=== PATIENT | male | born 1945 | race Caucasian/White ===

== ENCOUNTER 2018-05-06 06:02 | Day surgery (SDC) | payer MEDICARE, SELFPAY ==
--- NOTE | 2018-05-04 08:33 | W.PIPPEYE ---
History of Present Illness Chief Complaint: Progressive decreased vision, left eye Narrative: The patient is a 72-year-old male who has previously undergone cataract surgery in the right eye in 2013. He maintains uncorrected visual acuity of 20/25 in the right eye. He has developed a moderate nuclear cataract in the left eye with visual acuity of 20/100 uncorrected. Best corrected vision in the left eye is 20/50 with significant glare disability. The option of cataract surgery was offered to the patient and he wished to proceed. NOTE: The Chief Complaint, HPI, Past Medical History, Past Surgical History, Family History, Social History, Medications, and complete Ophthalmic Exam with detailed Assessment and Plan have already been documented in the patient's outpatient ophthalmic record and are not covered again in detail here. [facility] Medical History Nuclear sclerotic cataract of left eye (Acute) Social History Smoking/Tobacco Use Status: Current every day Surgical History Status post cataract extraction and insertion of intraocular lens of right eye (Chronic 09/23/13) Meds Home Medications Medication Instructions Recorded Confirmed Type acetaminophen [Arthritis Pain 2 tab PO BID PRN 09/18/13 05/02/18 History Relief (acetam)] calcium carbonate [Calcium] 600 mg PO BID 09/18/13 05/02/18 History digoxin [Lanoxin] 0.25 mg PO DAILY 09/18/13 05/02/18 History fenofibrate 160 mg PO DAILY 09/18/13 05/02/18 History furosemide 60 mg PO DAILY 09/18/13 05/02/18 History glimepiride 4 mg PO DAILY 09/18/13 05/02/18 History glucosamine cross 2KCl-chondroit 1 tab PO BID 09/18/13 05/02/18 History [Glucosamine & Chondroitin Cap] insulin glargine [Lantus Solostar] 75 units SQ HS 09/18/13 05/02/18 History lisinopril 10 mg PO DAILY 09/18/13 05/02/18 History magnesium oxide 400 mg PO DAILY 09/18/13 05/02/18 History metformin [Glucophage] 1,000 mg PO BID 09/18/13 05/02/18 History metoprolol tartrate 200 mg PO DAILY 09/18/13 05/02/18 History potassium chloride [Klor-Con M20] 20 meq PO DAILY 09/18/13 05/02/18 History simvastatin 40 mg PO HS 09/18/13 05/02/18 History warfarin [Coumadin] 5 mg PO DIRECTED 09/18/13 05/02/18 History alfuzosin 1 tab PO DAILY 05/02/18 05/02/18 History Allergies Allergy/AdvReac Type Severity Reaction Status Date / Time No Known Allergies Allergy Unverified 09/23/13 09:41 Exam OCULAR EXAM:: Visual acuity at distance: Uncorrected 20/25 right eye, 20/100 left eye. Best corrected visual acuity is 20/50 left eye. Pupils: Pupils equal, round, and reactive without afferent pupillary defect IOP: 12 OD 14 OS Extraocular Motility: Normal Pertinent Slit Lamp Findings: Significant for pupils dilating to 4.5 mm OU. Well-positioned PCIOL OD with 2+ posterior capsule haze. 2+ nuclear cataract OS. Dilated Funduscopic Examination: Disc cupping is 0.3 OU with good color. In the right macula there is some epiretinal membrane with preretinal fibrosis. The left macula is normal. Peripheral retina and vitreous in both eyes is normal. BRIGHTNESS ACUITY TESTING (BAT):: Off left eye 20/100 Low: 20/100 Medium: 20/200 High: 20/400 Assessment and Plan (1) Nuclear sclerotic cataract of left eye: Current visit: No Status: Acute Assessment: Visually significant cataract, left eye. Plan: Cataract extraction with intraocular lens implantation, left eye Note: NOTE:: The details of the planned surgery, including the risks, indications,limitations,expectations,outcome and possible complications were explained to the patient. The patient understands the complications including, but not limited to: infection, hemorrhage, posterior dislocation of the lens or nuclear fragments which may require the intervention of a vitreoretinal surgeon, possible loss of the eye, or from anesthetic complications. The patient has been made aware of the option of not having surgery, that vision following surgery may not be equal to that prior to surgery, and that the planned surgery may not achieve the intended results. Following this discussion, which the patient appeared to understand, the patient wishes to proceed with cataract surgery with lens implantation of the affected eye to improve and maximize vision.
--- NOTE | 2018-05-04 08:55 | POEE_ITS ---
History of Present Illness Chief Complaint: Progressive decreased vision, left eye Narrative: The patient is a 72-year-old male who has previously undergone cataract surgery in the right eye in 2013. He maintains uncorrected visual acuity of 20/25 in the right eye. He has developed a moderate nuclear cataract in the left eye with visual acuity of 20/100 uncorrected. Best corrected vision in the left eye is 20/50 with significant glare disability. The option of cataract surgery was offered to the patient and he wished to proceed. NOTE: The Chief Complaint, HPI, Past Medical History, Past Surgical History, Family History, Social History, Medications, and complete Ophthalmic Exam with detailed Assessment and Plan have already been documented in the patient's outpatient ophthalmic record and are not covered again in detail here. [facility] Medical History Nuclear sclerotic cataract of left eye (Acute) Social History Smoking/Tobacco Use Status: Current every day Surgical History Status post cataract extraction and insertion of intraocular lens of right eye ( Chronic 09/23/13) Meds Home Medications Medication Instructions Recorded Confirmed Type acetaminophen [Arthritis Pain 2 tab PO BID PRN 09/18/13 05/02/18 History Relief (acetam)] calcium carbonate [Calcium] 600 mg PO BID 09/18/13 05/02/18 History digoxin [Lanoxin] 0.25 mg PO DAILY 09/18/13 05/02/18 History fenofibrate 160 mg PO DAILY 09/18/13 05/02/18 History furosemide 60 mg PO DAILY 09/18/13 05/02/18 History glimepiride 4 mg PO DAILY 09/18/13 05/02/18 History glucosamine cross 2KCl-chondroit 1 tab PO BID 09/18/13 05/02/18 History [Glucosamine & Chondroitin Cap] insulin glargine [Lantus Solostar] 75 units SQ HS 09/18/13 05/02/18 History lisinopril 10 mg PO DAILY 09/18/13 05/02/18 History magnesium oxide 400 mg PO DAILY 09/18/13 05/02/18 History metformin [Glucophage] 1,000 mg PO BID 09/18/13 05/02/18 History metoprolol tartrate 200 mg PO DAILY 09/18/13 05/02/18 History potassium chloride [Klor-Con M20] 20 meq PO DAILY 09/18/13 05/02/18 History simvastatin 40 mg PO HS 09/18/13 05/02/18 History warfarin [Coumadin] 5 mg PO DIRECTED 09/18/13 05/02/18 History alfuzosin 1 tab PO DAILY 05/02/18 05/02/18 History Allergies Allergy/AdvReac Type Severity Reaction Status Date / Time No Known Allergies Allergy Unverified 09/23/13 09:41 Exam OCULAR EXAM:: Visual acuity at distance: Uncorrected 20/25 right eye, 20/100 left eye. Best corrected visual acuity is 20/50 left eye. Pupils: Pupils equal, round, and reactive without afferent pupillary defect IOP: 12 OD 14 OS Extraocular Motility: Normal Pertinent Slit Lamp Findings: Significant for pupils dilating to 4.5 mm OU. Well-positioned PCIOL OD with 2+ posterior capsule haze. 2+ nuclear cataract OS. Dilated Funduscopic Examination: Disc cupping is 0.3 OU with good color. In the right macula there is some epiretinal membrane with preretinal fibrosis. The left macula is normal. Peripheral retina and vitreous in both eyes is normal. BRIGHTNESS ACUITY TESTING (BAT):: Off left eye 20/100 Low: 20/100 Medium: 20/200 High: 20/400 Assessment and Plan (1) Nuclear sclerotic cataract of left eye: Current visit: No Status: Acute Assessment: Visually significant cataract, left eye. Plan: Cataract extraction with intraocular lens implantation, left eye Note: NOTE:: The details of the planned surgery, including the risks, indications, limitations,expectations,outcome and possible complications were explained to the patient. The patient understands the complications including, but not limited to: infection, hemorrhage, posterior dislocation of the lens or nuclear fragments which may require the intervention of a vitreoretinal surgeon, possible loss of the eye, or from anesthetic complications. The patient has been made aware of the option of not having surgery, that vision following surgery may not be equal to that prior to surgery, and that the planned surgery may not achieve the intended results. Following this discussion, which the patient appeared to understand, the patient wishes to proceed with cataract surgery with lens implantation of the affected eye to improve and maximize vision.
[2018-05-06 06:28] VITALS: BP 157/78; PULSE 71; RESP 16; TEMP 36.6; O2SAT 96
[2018-05-06] MEDS: Lidocaine 2% Jelly 6 ML SYR (07:27)
[2018-05-06] MEDS: Lidocaine 1% Pres-Free 5 ML VIAL (07:31)
[2018-05-06] MEDS: Balanced Salt Soln.-PLUS 500 ML BAG (07:31)
[2018-05-06] MEDS: Povidone-Iodine Ophth 30 ML BTL (07:52)
--- NOTE | 2018-05-06 07:57 | W.PM.DSUDISC ---
Discharge Plan Discharge Details Reason For Visit: CATARACT OS Attending Provider: Kehinde Michael Primary Care Provider: Woo Manzo Home Meds and New Rx's Prescriptions: No Action metoprolol tartrate 100 MG tablet 200 mg PO DAILY RF: 0 digoxin [Lanoxin] 0.25 MG tablet 0.25 mg PO DAILY RF: 0 simvastatin 40 MG tablet 40 mg PO HS RF: 0 acetaminophen [Arthritis Pain Relief (acetam)] 650 MG tablet extended release 2 tab PO BID PRNRF: 0 potassium chloride [Klor-Con M20] 20 MEQ tablet,ER particles/crystals 20 meq PO DAILY RF: 0 metformin [Glucophage] 1,000 MG tablet 1,000 mg PO BID RF: 0 lisinopril 10 MG tablet 10 mg PO DAILY RF: 0 glimepiride 4 MG tablet 4 mg PO DAILY RF: 0 warfarin [Coumadin] 5 MG tablet 5 mg PO DIRECTED RF: 0 furosemide 20 MG tablet 60 mg PO DAILY RF: 0 fenofibrate 160 MG tablet 160 mg PO DAILY RF: 0 insulin glargine [Lantus Solostar U-100 Insulin] 100 UNIT/ML insulin pen 75 units SQ HS RF: 0 calcium carbonate [Calcium 600] 600 MG tablet 600 mg PO BID RF: 0 glucosamine cross 2KCl-chondroit [Glucosamine Sulf-Chondroitin] 1 EACH capsule 1 tab PO BID RF: 0 magnesium oxide 400 MG capsule 400 mg PO DAILY RF: 0 alfuzosin 10 mg Tablet Extended Release 24 Hr 1 tab PO DAILY RF: 0 Discharge Instructions Stand Alone Forms: Post-op Topical Cataract, Codie White (DSU) DS: Diagnosis Discharge Diagnosis (1) Nuclear sclerotic cataract of left eye: Status: Resolved (2) Status post cataract extraction and insertion of intraocular lens of left eye: Status: Chronic
[2018-05-06 08:20] VITALS: BP 123/68; PULSE 67; RESP 18; TEMP 36.6; O2SAT 100
--- NOTE | 2018-05-06 08:40 | W.PM.OP ---
Date of service: 05/06/18 Time of Service: 08:41 Operative Note PRE-OP DIAGNOSIS: Cataract, left eye, with poorly dilating pupil POST-OP DIAGNOSIS: same PROCEDURE: Cataract extraction by phacoemulsification with intraocular lens implantation, left eye, with pupillary expansion device SURGEON: Kehinde Michael ANESTHESIA: MAC and local (sub-tenon's anesthetic infiltration) ESTIMATED BLOOD LOSS: 0 PATHOLOGY: none sent COMPLICATIONS: None Patient was transported to: same day Patient's condition: stable Implants: Nikos and Nikos / [employer] Tecnis [id number] Indications: Progressive decreased vision, left eye Procedure Description: CATARACT SURGERY OPERATIVE REPORT PREOPERATIVE DIAGNOSIS: 1. Nuclear cataract, left eye, symptomatic 2. Poorly dilating pupil, left eye POSTOPERATIVE DIAGNOSIS: Same OPERATION: 1. Cataract extraction using phacoemulsification with posterior chamber intraocular lens implant, left eye. 2. Pupillary dilation and iris stabilization using Malyugin Ring IOL; IOL Testing Manager/Model: Nik[employer] & Nikos / TANIA Tecnis [id number] IOL Power: + 20.0 diopters IOL Serial Number: [id number] Optic Diameter: 6.0 mm Haptic/Overall Diameter: 13.00 mm PHACO INFO: Deon Jangl SMSurion Vision System with OZil and Active Fluidics Cumulative Dispersed Energy (CDE): 11.26 seconds SURGEON: Kehinde Michael MD, DIVINE ANESTHESIA: Monitored Anesthesia Care (MAC), with local sub-tenon's anesthetic infiltration COMPLICATIONS: None SPECIMENS: None INDICATIONS FOR PROCEDURE: The patient is a 72-year-old male with history of progressive decreased vision in his left eye secondary to the development of nuclear cataract. He has previously undergone cataract surgery in his right eye in 2013. Visual acuity is 20/25 uncorrected in the right eye, 20/100 in the left eye. He now presents for cataract surgery in the left eye. PROCEDURE: The correct surgical eye was identified and marked as the left eye and the pupil was dilated in the preoperative area using mydriatics, cycloplegics, and NSAIDS (except in aspirin allergic patients). The dilated pupil size was 4.5 mm. Oral sedation was administered in the form of an Imprimis MKO Melt (midazolam 3mg/ketamine 25mg/ondansetron 2mg). The patient was brought to the operating room where cardiopulmonary monitoring was instituted and surgical time-out was performed, confirming the correct operative eye and IOL power. Topical anesthesia was administered and ophthalmic povidone-iodine 5% was instilled into the conjunctival fornices. Lidocaine gel was applied to the cornea and the josué-ocular area was prepped with Betadine 10% solution and draped in the usual sterile fashion for intraocular surgery. Steri-strips were used to cover the lashes and lid margins and an adhesive eye drape was placed. Care was taken to isolate the lashes and lid margins under the Steri-strips and adhesive eye drape. A lid speculum was placed between the lids of the operative eye and the Palmer-Latosha operating microscope was maneuvered into position. Ankur scissors were then used to make a conjunctival buttonhole approximately 6mm posterior to the limbus in the inferonasal quadrant. Blunt dissection was carried out to expose bare sclera, and a blunt-tipped sub-tenon?s anesthesia cannula was introduced and passed posteriorly along the globe where non-preserved plain lidocaine was injected into posterior sub-Tenon?s space. A sideport knife was used to make a paracentesis port at the 12:00 position and air was injected into anterior chamber, followed by Vision Blue, which was painted over the anterior capsule and then irrigated out with BSS. The anterior chamber was filled with Healon GV. A 2.4mm keratome knife was used to create a half-thickness groove at the limbus and then to construct a three-plane near-clear corneal tunnel extending 2.0mm into clear cornea at the 3:00 position. A 7.0 mm Malyugin Ring was then inserted into the pupillary space and engaged with the Kuglen hook. A flap was raised on the anterior capsule and capsulorhexis forceps were used to complete a continuous curvilinear capsulorhexis of 5.0 mm. Rhexis was irregular due to constant eye movement. Balanced salt solution was then used to perform cortical cleaving hydrodissection and nuclear hydrodelineation until the lens could be freely rotated within the capsular bag. The lens nucleus was then disassembled and removed within the capsular bag and iris plane using phacoemulsification. Residual cortical material was removed using the 45-degree angled silicone I/A tip with 0.3mm port. The posterior capsule was carefully polished to remove as much residual lens epithelial cells as safely possible. The capsular bag was then inflated and the anterior chamber deepened with viscoelastic. The lens implant described above was inserted into the capsular bag using the TANIA [place] Injector. A Kuglen hook was used to dial the IOL into position. The Malyugin Ring was removed in the reverse order of its insertion. Residual viscoelastic was then removed first from posterior to the IOL, then from the anterior chamber using the I/A handpiece. The lens implant was noted to center nicely within the capsular bag. The incisions were stromally hydrated, and the anterior chamber was reformed using BSS. Then 0.4cc of moxifloxacin 1.5mg/ml were injected into the capsular bag and anterior chamber. The incisions were checked with a Weck spear and found to be secure. Several drops of ophthalmic povidone-iodine 5% were then applied to the eye followed by two drops of Imprimis combination moxifloxacin/dexamethasone solution. The drapes were removed and a clear plastic protective eye shield was placed over the eye. The patient was then returned to Same Day Surgery in stable condition.
--- NOTE | 2018-05-06 08:43 | ROE_ITS ---
Date of service: 05/06/18 Time of Service: 08:41 Operative Note PRE-OP DIAGNOSIS: Cataract, left eye, with poorly dilating pupil POST-OP DIAGNOSIS: same PROCEDURE: Cataract extraction by phacoemulsification with intraocular lens implantation, left eye, with pupillary expansion device SURGEON: Kehinde Michael ANESTHESIA: MAC and local (sub-tenon's anesthetic infiltration) ESTIMATED BLOOD LOSS: 0 PATHOLOGY: none sent COMPLICATIONS: None Patient was transported to: same day Patient's condition: stable Implants: Nikos and Nikos / [employer] Opt[employer] Tecnis [id number] Indications: Progressive decreased vision, left eye Procedure Description: CATARACT SURGERY OPERATIVE REPORT PREOPERATIVE DIAGNOSIS: 1. Nuclear cataract, left eye, symptomatic 2. Poorly dilating pupil, left eye POSTOPERATIVE DIAGNOSIS: Same OPERATION: 1. Cataract extraction using phacoemulsification with posterior chamber intraocular lens implant, left eye. 2. Pupillary dilation and iris stabilization using Malyugin Ring IOL; IOL Home Health Provider/Model: [employer] & Nikos / TANIA Tecnis [id number] IOL Power: + 20.0 diopters IOL Serial Number: [id number] Optic Diameter: 6.0 mm Haptic/Overall Diameter: 13.00 mm PHACO INFO: Deon [place] [employer]ion Vision System with OZil and Active Fluidics Cumulative Dispersed Energy (CDE): 11.26 seconds SURGEON: Kehinde Michael MD, DIVINE ANESTHESIA: Monitored Anesthesia Care (MAC), with local sub-tenon's anesthetic infiltration COMPLICATIONS: None SPECIMENS: None INDICATIONS FOR PROCEDURE: The patient is a 72-year-old male with history of progressive decreased vision in his left eye secondary to the development of nuclear cataract. He has previously undergone cataract surgery in his right eye in 2013. Visual acuity is 20/25 uncorrected in the right eye, 20/100 in the left eye. He now presents for cataract surgery in the left eye. PROCEDURE: The correct surgical eye was identified and marked as the left eye and the pupil was dilated in the preoperative area using mydriatics, cycloplegics, and NSAIDS (except in aspirin allergic patients). The dilated pupil size was 4.5 mm. Oral sedation was administered in the form of an Imprimis MKO Melt (midazolam 3mg/ketamine 25mg/ondansetron 2mg). The patient was brought to the operating room where cardiopulmonary monitoring was instituted and surgical time-out was performed, confirming the correct operative eye and IOL power. Topical anesthesia was administered and ophthalmic povidone-iodine 5% was instilled into the conjunctival fornices. Lidocaine gel was applied to the cornea and the josué-ocular area was prepped with Betadine 10% solution and draped in the usual sterile fashion for intraocular surgery. Steri-strips were used to cover the lashes and lid margins and an adhesive eye drape was placed. Care was taken to isolate the lashes and lid margins under the Steri-strips and adhesive eye drape. A lid speculum was placed between the lids of the operative eye and the Palmer-Latosha operating microscope was maneuvered into position. Ankur scissors were then used to make a conjunctival buttonhole approximately 6mm posterior to the limbus in the inferonasal quadrant. Blunt dissection was carried out to expose bare sclera, and a blunt-tipped sub-tenon? s anesthesia cannula was introduced and passed posteriorly along the globe where non-preserved plain lidocaine was injected into posterior sub-Tenon?s space. A sideport knife was used to make a paracentesis port at the 12:00 position and air was injected into anterior chamber, followed by Vision Blue, which was painted over the anterior capsule and then irrigated out with BSS. The anterior chamber was filled with Healon GV. A 2.4mm keratome knife was used to create a half-thickness groove at the limbus and then to construct a three-plane near-clear corneal tunnel extending 2.0mm into clear cornea at the 3 :00 position. A 7.0 mm Malyugin Ring was then inserted into the pupillary space and engaged with the Kuglen hook. A flap was raised on the anterior capsule and capsulorhexis forceps were used to complete a continuous curvilinear capsulorhexis of 5.0 mm. Rhexis was irregular due to constant eye movement. Balanced salt solution was then used to perform cortical cleaving hydrodissection and nuclear hydrodelineation until the lens could be freely rotated within the capsular bag. The lens nucleus was then disassembled and removed within the capsular bag and iris plane using phacoemulsification. Residual cortical material was removed using the 45-degree angled silicone I/A tip with 0.3mm port. The posterior capsule was carefully polished to remove as much residual lens epithelial cells as safely possible. The capsular bag was then inflated and the anterior chamber deepened with viscoelastic. The lens implant described above was inserted into the capsular bag using the TANIA [place] Injector. A Kuglen hook was used to dial the IOL into position. The Malyugin Ring was removed in the reverse order of its insertion. Residual viscoelastic was then removed first from posterior to the IOL, then from the anterior chamber using the I/A handpiece. The lens implant was noted to center nicely within the capsular bag. The incisions were stromally hydrated , and the anterior chamber was reformed using BSS. Then 0.4cc of moxifloxacin 1.5mg/ml were injected into the capsular bag and anterior chamber. The incisions were checked with a Weck spear and found to be secure. Several drops of ophthalmic povidone-iodine 5% were then applied to the eye followed by two drops of Imprimis combination moxifloxacin/dexamethasone solution. The drapes were removed and a clear plastic protective eye shield was placed over the eye. The patient was then returned to Same Day Surgery in stable condition.
== END 2018-05-06 08:30 | disposition home or self-care (01) ==
LOC: SUR 06:02
PROVIDERS: PCP Internal Medicine; Visit Provider Ophthalmology
PROC: (CPT 66982; principal; 2018-05-06 07:30)
DX: H25.12 Age-related nuclear cataract, left eye (principal); H57.09 Other anomalies of pupillary function; T44.6X5S Adverse effect of alpha-adrenoreceptor antagonists, sequela; Z98.41 Cataract extraction status, right eye; Z96.1 Presence of intraocular lens; E11.9 Type 2 diabetes mellitus without complications; Z79.4 Long term (current) use of insulin; I10 Essential (primary) hypertension; F17.210 Nicotine dependence, cigarettes, uncomplicated
CPT/HCPCS: 66982; V2632

== ENCOUNTER → 2021-03-14 09:07 | Outpatient (BNVA) | payer MEDICARE, SELFPAY | PROVIDERS: PCP Internal Medicine; Referring Provider Internal Medicine; Visit Provider Urology | DX: R33.8 Other retention of urine (principal); Z46.6 Encounter for fitting and adjustment of urinary device | CPT/HCPCS: 51702; 99215 ==

== ENCOUNTER → 2021-04-26 08:35 | Outpatient (BNVA) | payer MEDICARE, SELFPAY | PROVIDERS: PCP Internal Medicine; Referring Provider Internal Medicine; Visit Provider Urology | DX: R33.8 Other retention of urine (principal); Z46.6 Encounter for fitting and adjustment of urinary device | CPT/HCPCS: 51702; 51728; 51784; 51797 ==

== ENCOUNTER → 2021-05-30 13:58 | Outpatient (BNVA) | payer MEDICARE, SELFPAY | PROVIDERS: PCP Internal Medicine; Referring Provider Internal Medicine; Visit Provider Nurse Practitioner Gerontology | DX: R33.8 Other retention of urine (principal); Z46.6 Encounter for fitting and adjustment of urinary device | CPT/HCPCS: 51702; 99213 ==

== ENCOUNTER → 2021-06-30 14:35 | Outpatient (BNVA) | payer MEDICARE, SELFPAY | PROVIDERS: PCP Internal Medicine; Referring Provider Internal Medicine; Visit Provider Nurse Practitioner Gerontology | DX: R33.9 Retention of urine, unspecified (principal); N39.0 Urinary tract infection, site not specified; Z46.6 Encounter for fitting and adjustment of urinary device | CPT/HCPCS: 51702; 99213 ==

== ENCOUNTER 2021-06-30 19:58 | Outpatient (REF) | payer MEDICARE, SELFPAY | END 2021-06-30 19:59 | disposition home or self-care (01) | LOC: LBN 19:58 | PROVIDERS: PCP Internal Medicine; Visit Provider Nurse Practitioner Gerontology | DX: R33.9 Retention of urine, unspecified (principal) | CPT/HCPCS: 87086; 87186 ==

== ENCOUNTER 2021-07-22 01:50 | Outpatient (CLI) | payer MEDICARE, SELFPAY ==
--- NOTE | 2021-07-22 07:15 | DI.CT_ITS ---
Exam(s) CT ABDOMEN PELVIS WO/W EXAM: CT ABDOMEN PELVIS WO/W CLINICAL HISTORY: Recurrent UTIs with bacteria concerning for stones,n39.0 TECHNIQUE: Imaging Protocol: Axial computed tomography images with coronal and sagittal reformatted images were created and reviewed CONTRAST MATERIAL: Intravenous: Omnipaque 350 Contrast volume:100 mL Oral: No COMPARISON: No exams were available for comparison FINDINGS: ABDOMEN: Lung Bases: There is a small right pleural effusion and subjacent infiltrate. There is a small left pleural effusion. Coronary artery calcifications are present there is atherosclerosis of the thoraci c aorta. Cardiomegaly. Liver: Normal density. No measurable mass. The liver measures 19.2 cm long. Portal, Superior Mesenteric, and Splenic Veins: Unremarkable. Gallbladder and Biliary Tract: Cholelithiasis. No biliary ductal dilatation. Pancreas: Normal density, no abnormal calcifications or inflammatory process. Spleen: Normal. Adrenals: No masses seen. Kidneys: Normal size, contour and axis. There is a 4 mm stone in the upper pole of the left kidney. N o ureterolithiasis or hydronephrosis. There hypodensities seen in the right kidney. They are too smal l for further characterization but likely reflect small cysts. Abdominal Aorta: Abdominal portion non-dilated. Atherosclerosis. Bowel: No obstruction or bowel wall thickening. No evidence of appendicitis. Peritoneal Cavity: There is a small amount of free fluid in the pelvis. No focal fluid collection is seen to suggest an abscess. No free air. Lymph Nodes: Within normal limits. Bones: Within normal limits for the patient's age. Soft Tissues: Unremarkable. PELVIS: Bladder: There is diffuse thickening of the wall of the urinary bladder up to 1.4 cm. More prominent thickening is seen in the dome of the urinary bladder. A mass cannot be excluded. There is a Dodd ca theter in place. Reproductive Organs: There is an enlarged prostate gland. Lymph Nodes: Within normal limits. Bones: Within normal limits for the patient's age. IMPRESSION: 1. There is diffuse thickening of the wall of the urinary bladder. On the dome of the bladder, there is increased prominence of the bladder wall thickening and a mass cannot be excluded. 2. Left nephrolithiasis. No ureterolithiasis or hydronephrosis. 3. Cholelithiasis. No biliary ductal dilatation. 4. Cardiomegaly. Coronary artery calcifications and atherosclerosis. 5. Bilateral pleural effusions and subjacent infiltrate in the right lung base. This may represent at electasis or pneumonia. Please correlate clinically. RADIATION DOSE DELIVERED: 3,002.17mGy.cm Total DLP 3,002.17mGy.cm Total DLP DATA REPOSITORY: All CT scans at this facility are submitted to the National Radiology Data Registry (NRDR) Dose Index Registry (DIR) with the [employer] ([employer]). RADIATION OPTIMIZATION: All CT scans at this facility use at least one of these dose optimization te chniques: automated exposure control; mA and/or kV adjustment per patient size (includes targeted exa ms where dose is matched to clinical indication); or iterative reconstruction.
[2021-07-22 13:27] LABS: CREATININE 1.7 mg/dL (0.70-1.30); Estimated GFR 39.38 (mL/min/1.73m2)
[2021-07-22] MEDS: Omnipaque 350 MG/ML 100 ML BTL IJ (14:24)
== END 2021-07-22 02:10 ==
PROVIDERS: PCP Internal Medicine; Visit Provider Nurse Practitioner Gerontology
DX: R33.9 Retention of urine, unspecified (principal); N39.0 Urinary tract infection, site not specified; R93.49 Abnormal radiologic findings on diagnostic imaging of other urinary organs; K80.20 Calculus of gallbladder without cholecystitis without obstruction; I51.7 Cardiomegaly; J90 Pleural effusion, not elsewhere classified
CPT/HCPCS: 74178; 82565; J3490

== ENCOUNTER → 2021-07-27 14:34 | Outpatient (BNVA) | payer MEDICARE, SELFPAY | PROVIDERS: PCP Internal Medicine; Visit Provider Nurse Practitioner Gerontology | DX: R33.9 Retention of urine, unspecified (principal); N20.0 Calculus of kidney; N32.89 Other specified disorders of bladder; Z46.6 Encounter for fitting and adjustment of urinary device | CPT/HCPCS: 51702; 99213 ==

== ENCOUNTER → 2021-08-24 14:17 | Outpatient (BNVA) | payer MEDICARE, SELFPAY | PROVIDERS: PCP Internal Medicine; Visit Provider Nurse Practitioner Gerontology | DX: R33.9 Retention of urine, unspecified (principal); N20.0 Calculus of kidney; N32.89 Other specified disorders of bladder | CPT/HCPCS: 51702 ==

== ENCOUNTER 2021-09-01 01:23 | Outpatient (CLI) | payer MEDICARE, SELFPAY ==
--- NOTE | 2021-09-01 15:05 | DI.US_ITS ---
APPROVED REPORT EXAM: Comprehensive 2D, Doppler, and color-flow Echocardiogram Patient Location: Out-Patient [facility] Operator: Latasha London RDCS (AE) Indications: CHF, A fib Other Information Study Quality: Adequate Conclusion Normal left ventricular wall thickness and chamber size. Estimated ejection fraction is 50%, mild gl obal hypokinesis Normal right ventricular size and systolic function Both atria are severely dilated The aortic valve is sclerotic and trileaflet with trace regurgitation. There is no aortic stenosis Mild mitral annular calcification. Moderate mitral regurgitation Normal tricuspid valve with moderate to severe regurgitation. Estimated right ventricular systolic p ressure is 76 mmHg Wall motion Left Ventricle Left ventricle is borderline dilated. Left ventricular systolic function is mildly decreased. There i s normal left ventricular wall thickness. There is global hypokinesis of the left ventricle. There is no ventricular septal defect visualized. LVEF is 50%. Right Ventricle The right ventricle is normal size. The right ventricular systolic function is normal. The RVSP is 76 .0mmHg. Atria Left atrium is severely dilated. Right atrium is severely dilated. The interatrial septum is intact w ith no evidence for an atrial septal defect. Aortic Valve The Aortic valve is sclerotic. Aortic valve is trileaflet. There is no aortic valvular stenosis. Trac e aortic regurgitation. Mitral Valve Mild mitral annular calcification. No evidence of mitral valve stenosis. Moderate mitral regurgitatio n. Tricuspid Valve The tricuspid valve is normal in structure. There is no tricuspid valve stenosis. Moderate to severe tricuspid regurgitation. Pulmonic Valve The pulmonary valve is normal in structure. There is no pulmonic valvular stenosis. Mild pulmonic reg urgitation. Great Vessels The aortic root is normal in size. The ascending aorta is normal in size. Aortic arch is normal in ca liber. The IVC collapses <50% with inspiration. Pericardium There is no pericardial effusion. 2D Dimensions IVSD d PLAX 1.11 cm M: 0.6-1.2 LV Vol A2C d MOD 173.2 mL LVPW d PLAX 1.12 cm M: 0.6 - 1.2 LV Vol A4C d MOD 181.3 mL LVID d PLAX 5.87 cm M: 4.2 - 5.8 LA vol/ BSA A2C s A-L 54.6 mL/m2 LVDs 4.45 cm M: 2.5 - 4.0 LA vol/ BSA A4C s A-L 54.1 mL/m2 Ao Root d 3.34 cm M: 3.1 - 3.7 LA Vol/ BSA Biplane s A-L 58.3 mL/m2 RA Area A4C 27.30 cm2 LA Area A4C s MOD 30.03 cm2 RA Vol/ BSA A4C s A-L 48.7 mL/m2 LA Area A2C s MOD 28.12 cm2 Ao Asc Diam d 3.00 cm M: 2.6 - 3.4 LV EF A4C MOD 50.4 % LV EF Teichholz 46.0 % LV EF A2C MOD 50.5 % LVEF (Trinh's) 51.11 % M: 52 - 72 LV EF Biplane MOD 51.1 % LV Volume 135.67 mL M: 62 - 150 SV 92.27 mL LV Volume Index 68.52 mL/m2 M: 34 - 74 SV Index 46.41 mL/m2 LV Vol Biplane MOD 180.5 mL FS 23.35 % M-Mode TAPSE 1.63 cm (M/F) >1.7 LV Diastology MV E' lateral 0.126 (>0.1 m/s) E/A Ratio 2.8 LV E/e LAT 7.65 (<14) MV E Vmax 0.97 (0.4-1.3 m/s) MV E/E' lateral 7.69 MV A Vmax 0.35 (0.4-1.3 m/s) MV E/A Ratio 2.69 Aortic Valve LVOT Area 4.07 cm2 AoV Area Vmax 1.95 cm2 LVOT Vmax 0.70 m/s AoV Area/ BSA (Vmax) 0.98 cm2/m2 LVOT Mean Mk. 0.42 m/s DAVID Mean Mk. 1.65 cm2 LVOT Peak Grad 2.0 mmHg DAVID Mean Mk. Index 0.83 cm2/m2 LVOT Mean Grad 0.8 mmHg AR DT 3030 msec LVOT VTI 0.147 m AR PHT 879 msec LVOT Diam s 2.25 cm AoV Vmax 1.46 m/s Velocity Ratio 0.47 AoV Mean Mk. 1.02 m/s AoV Peak Grad 8.5 mmHg LVOT SV 59.86 mL AoV Mean Grad 4.6 mmHg AoV VTI 0.332 m AoV Area VTI 1.80 cm2 AoV Area/ BSA (VTI) 0.91 cm/m2 Mitral Valve MV DT 157 (160-240 msec) MR Vmax 5.35 m/s MV PHT 45 msec MR VTI 1.982 m MV Area PHT 4.84 cm2 MR Peak Grad 114.3 mmHg MV VTI 0.263 m MR Mean Grad 78.3 mmHg MV VTI Annulus 0.269 m MR PISA Radius 0.62 cm MV Area VTI 2.33 (4.0-6.0 cm2) MR EROA 0.16 cm2 MR Aliasing Velocity 0.35 m/s MR PISA 2.38 cm2 Pulmonary Valve PV Vmax 0.75 (0.5-1.5 m/s) RVOT Peak Gr. 0.88 mmHg PV Peak Grad 2.3 mmHg RVOT Mean Gr. 0.45 mmHg PV Mean Grad 1.0 mmHg RVOT VTI 0.115 m PV VTI 0.154 m RVOT Vmax 0.47 m/s Tricuspid Valve TR Peak Grad 67.9 mmHg TR Vmax 4.12 m/s RA Pressure 8.00 mmHg RVSP (TR) 76.0 mmHg
== END 2021-09-01 01:43 ==
PROVIDERS: PCP Internal Medicine; Visit Provider Internal Medicine
DX: I50.22 Chronic systolic (congestive) heart failure (principal); I48.91 Unspecified atrial fibrillation; I36.1 Nonrheumatic tricuspid (valve) insufficiency
CPT/HCPCS: 93306

== ENCOUNTER → 2021-09-21 14:11 | Outpatient (BNVA) | payer MEDICARE, SELFPAY | PROVIDERS: PCP Internal Medicine; Visit Provider Nurse Practitioner Gerontology | DX: Z46.6 Encounter for fitting and adjustment of urinary device (principal); R33.8 Other retention of urine; N20.0 Calculus of kidney; N32.89 Other specified disorders of bladder | CPT/HCPCS: 51702 ==

== ENCOUNTER 2021-10-28 20:57 | Outpatient (REF) | payer MEDICARE, SELFPAY | END 2021-10-28 20:58 | disposition home or self-care (01) | LOC: LBN 20:57 | PROVIDERS: PCP Internal Medicine; Visit Provider Internal Medicine | DX: R33.9 Retention of urine, unspecified (principal) | CPT/HCPCS: 87086 ==